=== PATIENT | female | born 1990 | race Caucasian/White ===

== ENCOUNTER 2017-04-25 05:59 | Inpatient (IN) | payer OTHER ==
[2017-04-25] VITALS (29 sets, daily range): BP systolic 80–121; BP diastolic 47–80; PULSE 72–139; RESP 16–20; TEMP 98–98.3; O2SAT 98
[~2017-04-25 05:59] MED LIST: IBUP600 PO; PERI8.6T PO; PRENCAP6 PO
[2017-04-25] MEDS ORDERED: LACTATED RINGER'S 1000 ML INJ 1,000 ML IV PRN (06:24)
[2017-04-25] MEDS ORDERED: LACTATED RINGER'S 1000 ML INJ 1,000 ML IV SCH (06:24)
--- NOTE | 2017-04-25 06:24 | PD ---
HPI Chief Complaint Contractions Date Seen: Apr 25, 2017 Time Seen: 06:15 Travel History International Travel<30 Days: No Contact w/Intl Traveler<30Days: No Known Affected Area: No History of Present Illness HPI Pt is a 27 yo with EDC 05-10-2017 making her 37 weeks and [address] Almaguer H/o hypothyroidism. No vaginal bleeding Para: 1 : 2 History Past Medical History Narrative Medical Hypothyroidism Past Surgical History Narrative Surgical Breast augmentation Family History Family History: Negative Social History Alcohol Use: No Tobacco Use: No Substance Abuse: No Allergies-Medications (Allergen,Severity, Reaction): Coded Allergies: No Known Allergies (Unverified , 11/03/15) Home Meds Active Scripts Sennosides-Docusate Sodium (Silke-Colace 8.6-50 mg)1 Tab Tab2 Tab PO Q12H #28 TAB Ref 1 Prov:Elina Almaguer MD 11/03/15 Ibuprofen (Motrin 600 Mg Tab)600 Mg Vie420 Mg PO Q6H PRN ( CRAMPING) # 30 TAB Ref 1 Prov:Elina Almaguer MD 11/03/15 Reported Medications Mv & Min W/Fe Fumarat ( 1) Cap1 Cap PO DAILY 11/03/15 Review of Systems Except as stated in HPI: all other systems reviewed are Neg Physical Exam Narrative GENERAL: Well-nourished, well-developed patient. SKIN: Warm and dry. HEAD: Normocephalic and atraumatic. EYES: No scleral icterus. No injection or drainage. ENT: No nasal drainage noted. Mucous membranes pink. Airway patent. NECK: Supple, trachea midline. No JVD. CARDIOVASCULAR: Regular rate and rhythm without murmurs, gallops, or rubs. RESPIRATORY: Breath sounds equal bilaterally. No accessory muscle use. BREASTS: Bilateral exam showed no masses , no retractions, no nipple discharge. ABDOMEN/GI: Abdomen soft, non-tender, bowel sounds present, no rebound, no guarding Gravid to [-38 weeks size Fundal Height: [38] GENITOURINARY: External Genitalia: intact and normal in appearance BUS glands: [-] Cervix: [soft] Dilatation: [9cm] Effacement: [100%] Station: [-3] Presentation: [vertex] Membranes: [intact , bulging] Uterine Contractions: [q 2-3 minutes] FHT's: Category: [cat 1-] Baseline: [120 Reactive: [-] Variability: [moderate] Decels: [none] EXTREMITIES: No cyanosis or edema. BACK: Nontender without obvious deformity. No CVA tenderness. NEUROLOGICAL: Awake and alert. Motor and sensory grossly within normal limits. Five out of 5 muscle strength in all muscle groups. Normal speech. Data Data Vital Signs Reviewed: Yes MDM Interpretation(s) Term labor. GBS negative per patient. Admit for delivery. Dr Garcia informed ( cover for Dr Almaguer) Diagnosis Diagnosis: Primary Impression: Labor and delivery indication for care or intervention Condition: Sj Batista MD Apr 25, 2017 06:24
[2017-04-25] MEDS ORDERED: LEVO75TA3 PO (06:29)
[2017-04-25] MEDS ORDERED: MINERAL OIL 10 ML VIAL TOPICAL PRN (06:30)
[2017-04-25] MEDS ORDERED: LIDOCAINE HCL 1% 50 ML VIAL INFIL PRN (06:30)
[2017-04-25] MEDS ORDERED: OXYTOCIN 30 UNITS-500ML PREMIX 500 ML IV ONE (06:30)
[2017-04-25] MEDS ORDERED: SODIUM CHLORID 0.9% 500 ML INJ 500 ML IV PRN (06:30)
[2017-04-25] MEDS ORDERED: LIDOCAINE HCL 1% 50 ML VIAL I-DERMAL PRN (06:30)
[2017-04-25] MEDS ORDERED: CITRIC ACID-SODIUM CITRATE LIQ 30 ML UDC PO SCH (06:30)
[2017-04-25] MEDS ORDERED: fentaNYL 2MCG-BUPIV 0.125% INJ 100 ML ONE (06:39)
[2017-04-25] MEDS ORDERED: SODIUM CHLOR 0.9% 1000 ML INJ 1,000 ML IV PRN (06:44)
[2017-04-25 06:45] LABS: AUTOMATED NEUTROPHIL # 14.2 TH/MM3 (1.8-7.7); BASOPHIL % 0.2 % (0.0-2.0); EOSINOPHIL % 0.1 % (0.0-4.0); HEMATOCRIT 42.5 % (35.0-46.0); HEMO FLAGS DIFF FINAL; LYMPH % 10.8 % (9.0-44.0); LYMPHOCYTE # 1.8 TH/MM3 (1.0-4.8); MEAN CELL VOLUME 90.4 FL (80.0-100.0); MEAN CORPUSCULAR HEMOGLOBIN 30.8 PG (27.0-34.0); MEAN CORPUSCULAR HGB CONC 34.1 % (32.0-36.0); MONO % 4.6 % (0.0-8.0); NEUT % 84.3 % (16.0-70.0); PLATELET COUNT 219 TH/MM3 (150-450); WHITE BLOOD COUNT 16.8 TH/MM3 (4.0-11.0)
[2017-04-25 06:48] LABS: BLOOD, URINE NEG (NEG); GLUCOSE,URINE NEG (NEG); KETONE, URINE NEG (NEG); MUCUS URINE FEW /lpf (OCC); NITRITE,URINE NEG (NEG); PH, URINE 6.5 (5.0-8.5); RENAL EPITHELIAL CELLS <1 /hpf; SQUAMOUS EPITHELIAL CELL URINE 6 /hpf (0-5); URINE COLOR YELLOW (YELLW/STRAW)
[2017-04-25 06:49] LABS: COMMENT (UR) CULT NOT INDICATED; CULTURE IF INDICATED CULT NOT INDICATED
[2017-04-25] MEDS ORDERED: DISCONTINUE ALL PREVIOUS ORDERS ONE (13:15)
[2017-04-25] MEDS ORDERED: DOCUSATE SODIUM 50 MG/SENNA 8.6 MG TAB PO PRN (13:15)
[2017-04-25] MEDS ORDERED: BENZOCAINE 20% TOPICAL SPRAY 60 ML CAN TOPICAL PRN (13:15)
[2017-04-25] MEDS ORDERED: ZOLPIDEM TARTRATE 5 MG TAB PO PRN (13:15)
[2017-04-25] MEDS ORDERED: ACETAMINOPHEN 325 MG TAB PO PRN (13:15)
[2017-04-25] MEDS ORDERED: ALUMINUM/MAGNESIUM/SIMETH 30 ML CUP PO PRN (13:15)
[2017-04-25] MEDS ORDERED: WITCH HAZEL 50%/GLYCERIN 12.5% 40 PAD JAR TOPICAL PRN (13:15)
[2017-04-25] MEDS ORDERED: ONDANSETRON ODT 4 MG TAB PO PRN (13:15)
[2017-04-25] MEDS ORDERED: OXYTOCIN 30 UNITS-500ML PREMIX 500 ML IV SCH ×2 (13:15→13:30)
[2017-04-25] MEDS: IBUPROFEN 600 MG TAB PO PRN ×2 (13:38→20:06)
[2017-04-25] MEDS ORDERED: DIPHTH/TETANUS/ACEL PERTUSSIS (BOOSTER) 0.5 ML VIAL/PFS IM ONE (16:00)
[2017-04-25] MEDS ORDERED: MEASLES, MUMPS, RUBELLA VACCINE 0.5 ML VIAL SQ ONE (16:00)
[2017-04-26] MEDS: IBUPROFEN 600 MG TAB PO PRN ×3 (01:49→13:37)
[2017-04-26] MEDS ORDERED: LEVOTHYROXINE SODIUM 75 MCG TAB PO SCH (06:00)
[2017-04-26 07:55] VITALS: BP 98/64; PULSE 72; RESP 16; TEMP 98.1
--- NOTE | 2017-04-26 08:08 | HHI.OB ---
Subjective Post Day: 1 Remarks s/p of healthy male infant 04/25/17 Objective Objective Remarks GENERAL: Well-nourished, well-developed patient. CARDIOVASCULAR: Regular rate and rhythm without murmurs, gallops, or rubs. RESPIRATORY: Breath sounds equal bilaterally. No accessory muscle use. ABDOMEN/GI: Abdomen soft, non-tender. Fundus: Firm, non-tender at umbilicus. GENITOURINARY: moderate bleeding. EXTREMITIES: No cyanosis or edema, non-tender, without signs of DVT. Medications and IVs Current Medications Medications (Trade) Dose Ordered Sig/[place] Route Start Time Stop Time Status Last Admin Lactated Ringer's 1,000 ml @ 125 mls/hr Q8H IV 04/25/17 06:24 Lactated Ringer's 1,000 ml @ 3,000 mls/hr Q20M PRN IV 04/25/17 06:24 Sodium Chloride 500 ml @ 1,000 mls/hr ONCE PRN IV 04/25/17 06:30 Sodium Chloride 1,000 ml @ 100 mls/hr Q10H PRN IV 04/25/17 06:44 (Xylocaine 1% Inj (50 ml)) 0.1 ml UNSCH X1 PRN I-DERMAL 04/25/17 06:30 04/28/17 06:29 (Bicitra Liq) 30 ml MULTILITH OPERATOR PO 04/25/17 06:30 04/29/17 06:29 (fentaNYL INJ) 50 mcg Q1H PRN IV PUSH 04/25/17 06:30 (fentaNYL INJ) 100 mcg Q1H PRN IV PUSH 04/25/17 06:30 (Xylocaine 1% Inj (50 ml)) 10 ml UNSCH X1 PRN INFIL 04/25/17 06:30 04/27/17 06:29 (Muri-Lube Oil) 10 ml UNSCH PRN TOPICAL 04/25/17 06:30 (Synthroid) 75 mcg DAILY@0600 PO 04/26/17 06:00 04/26/17 05:33 (Tylenol) 650 mg Q4H PRN PO 04/25/17 13:15 (Motrin) 600 mg Q6H PRN PO 04/25/17 13:15 04/26/17 07:54 (Americaine 20% Top Spr) 1 spray Q4H PRN TOPICAL 04/25/17 13:15 04/25/17 13:37 (Tucks Pads) 1 applic Q6H PRN TOPICAL 04/25/17 13:15 04/25/17 13:37 (Silke-Colace) 2 tab Q12H PRN PO 04/25/17 13:15 (Ambien) 5 mg HS PRN PO 04/25/17 13:15 (Mag-Al Plus Susp Liq) 15 ml Q8H PRN PO 04/25/17 13:15 (Zofran Odt) 4 mg Q6H PRN PO 04/25/17 13:15 Oxytocin 500 ml @ 999 mls/hr MULTILITH OPERATOR IV 04/25/17 13:30 04/29/17 13:29 Assessment/Plan Problem List: (1) (spontaneous vaginal delivery) ICD Codes: O80 - Encounter for full-term uncomplicated delivery Status: Acute Assessment and Plan PPD#1 routine supportive care infant for circ prior to d/c Discharge Planning routine Elina Almaguer MD Apr 26, 2017 08:08
[2017-04-26] MEDS ORDERED: IBUP-232 PO (11:02)
--- NOTE | 2017-04-26 11:02 | HHI.DCPOC ---
Discharge Care Plan Diagnosis: (1) (spontaneous vaginal delivery) Your Health Problems Are: Vaginal delivery Report Symptoms to Your Doctor -Temperature above 100.5 degrees -Redness, of incision or excessive or foul smelling drainage -Unusual pain or calf pain -Increased vaginal bleeding -Painful or difficulty urinating -Feelings of extreme sadness or anxiety after 2 weeks Goals to Promote Your Health * To prevent worsening of your condition and complications * To maintain your health at the optimal level Directions to Meet Your Goals Take your medications as prescribed Follow your dietary instruction Follow activity as directed Ensure plenty of rest for recovery Drink fluids for hydration Keep your appointments as scheduled Take your immunizations and boosters as scheduled If your symptoms worsen call your PCP, if no PCP go to Urgent Care Center or Emergency Room Smoking is Dangerous to Your Health. Avoid second hand smoke Call the 24-hour crisis hotline for domestic abuse at Elina Almaguer MD Apr 26, 2017 11:02
--- NOTE | 2017-04-29 17:16 | PD.OB.DELI ---
Weeks gestation: 37 Gest age assessed date: Apr 25, 2017 Gest age assessed time: 08:50 Pt started active labor?: Yes Active labor start date: Apr 25, 2017 Medical induction of labor?: No Artificial rupture of membrane: Yes Artificial ROM date: Apr 25, 2017 Anesthesia: Epidural Episiotomy: None Vaginal Delivery: Normal Presentation: Occiput anterior Nuchal Cord: None Delayed cord clamping (45 sec): Yes Infant: Male Delivery date: Apr 25, 2017 Delivery time: 08:50 One Minute : 9 Five Minute : 9 Weight: 7 lb 12oz Placenta: Spontaneous delivery, Intact, Other (bilobed) Laceration: No lacerations Estimated blood loss: 400ml Tatyana Christianson MD Apr 29, 2017 17:16
== END 2017-04-26 17:08 | disposition home or self-care (01) | DRG 775 ==
LOC: HOBED 05:59 → H2EB 06:14 → H1EA 11:00
PROVIDERS: ADMIT Obstetrics & Gynecology; ATTEND Obstetrics & Gynecology
PROC: 10E0XZZ Delivery of Products of Conception, External Approach (ICD-10-PCS; principal; 2017-04-25)
PROC: 10907ZC Drainage of Amniotic Fluid, Therapeutic from Products of Conception, Via Natural or Artificial Opening (ICD-10-PCS; 2017-04-25)
PROC: 00HU33Z Insertion of Infusion Device into Spinal Canal, Percutaneous Approach (ICD-10-PCS; 2017-04-25)
PROC: 3E0R3CZ (ICD-10-PCS; 2017-04-25)
DX: O99.284 Endocrine, nutritional and metabolic diseases complicating childbirth (principal); E03.9 Hypothyroidism, unspecified; Z37.0 Single live birth; Z3A.37 37 weeks gestation of pregnancy
CPT/HCPCS: 59025; 81001; 84112; 85025; 86900; 86901; 90715